=== PATIENT | female | born 1990 | race Caucasian/White ===

== ENCOUNTER → 2019-06-17 | Outpatient (CLI) | payer BC ==
[2019-06-17 11:19] LABS: HCT 41.3 % (34.0-46.0); HGB 13.5 gm/dL (11.4-16.0); MCH 27.5 pg (25.0-35.0); MCHC 32.6 g/dL (31.0-37.0); MCV 84.2 fL (80.0-100.0); Mean Platelet Volume 9.1; Platelet Count 224 k/uL (150-450); RDW 14.2 % (11.5-15.5)
[2019-06-17 18:10] LABS: Hemoglobin A1C 4.9 % (4.0-6.0)
[2019-06-17 18:26] LABS: Hepatitis B Surface Antigen Non-Reactive (Non-Reactive)
[2019-06-19 11:10] LABS: HIV 1 AB Non-Reactive (Non-Reactive); HIV 2 AB Non-Reactive (Non-Reactive); HIV AB P24 Non-Reactive (Non-Reactive); HIV P24 AG Non-Reactive (Non-Reactive)
== END | disposition home or self-care (01) ==
LOC: LABWHC1 09:45
PROVIDERS: ATTEND Obstetrics & Gynecology
DX: Z34.01 Encounter for supervision of normal first pregnancy, first trimester (principal); Z3A.00 Weeks of gestation of pregnancy not specified
CPT/HCPCS: 36415; 82950; 83036; 85027; 86762; 86780; 86850; 86900; 86901; 87340; 87390

== ENCOUNTER 2019-12-06 06:05 | Inpatient (IN) | payer BC ==
[2019-12-06] MEDS ORDERED: OXYTOCIN 10 UNIT/ML 1 ML VIAL IM PRN (06:16)
[2019-12-06] MEDS ORDERED: METHYLERGONOVINE 0.2 MG/ML 1 ML AMP IM PRN (06:16)
[2019-12-06] MEDS ORDERED: TERBUTALINE 1 MG/ML VIAL SQ PRN (06:16)
[2019-12-06] MEDS ORDERED: CARBOPROST TROMETHAMINE 250 MCG/ML 1 ML AMP IM PRN (06:16)
[2019-12-06] MEDS ORDERED: LIDOCAINE 0.5% (PF) 5 MG/ML (50 ML SDV) SQ PRN (06:16)
[2019-12-06] MEDS ORDERED: OXYTOCIN 30 UNITS/500 ML NS 30 UNIT in SALINE 1 500ML.BAG IV SCH (06:30)
[2019-12-06] MEDS ORDERED: PENICILLIN G POTASSIUM 5,000,000 UNIT in DEXTROSE 5% IN WATER 100 ML IVPB ONE ×2 (06:30)
[2019-12-06] MEDS: LACTATED RINGERS 1,000 ML IV SCH ×2 (06:40→10:02)
[2019-12-06 06:52] VITALS: RESP 16
[2019-12-06 07:38] LABS: Basophils % (A) 0 %; Eosinophils # (A) 0.1 k/uL (0-0.7); Eosinophils % (A) 1 %; HCT 38.1 % (34.0-46.0); HGB 12.6 gm/dL (11.4-16.0); Lymphocytes # (A) 1.9 k/uL (1.0-4.8); Lymphocytes % (A) 19 %; MCH 28.4 pg (25.0-35.0); MCHC 33.1 g/dL (31.0-37.0); MCV 85.6 fL (80.0-100.0); Mean Platelet Volume 14.3; Monocytes # (A) 0.5 k/uL (0-1.0); Monocytes % (A) 5 %; Neutrophils # (A) 7.1 k/uL (1.3-7.7); Neutrophils % (A) 72 %; Platelet Count 156 k/uL (150-450); RBC 4.45 m/uL (3.80-5.40); RDW 14.1 % (11.5-15.5); WBC 9.9 k/uL (3.8-10.6)
--- NOTE | 2019-12-06 07:49 | P.HPOB ---
History of Present Illness H&P Date: 12/06/19 This is a 29-year-old white female 1 para 0 EDC 12/13/2019 at 39 weeks gestation. Patient presents today for induction for gestational hypertension. Favorable cervix is noted. She is having mild irregular spontaneous contractions. She denies fluid leakage or vaginal bleeding. Fetus is been active throughout the . Weekly nonstress testing has been reactive. Obstetrical history is significant for blood type A+, group B strep cultures positive, rubella status immune. VDRL testing, gonorrhea and chlamydia cultures, urine culture, HIV testing, hepatitis B surface antigen all negative. One-hour Glucola 112. Marginal cord insertion was noted sonographically. Social history patient is , she is a schoolteacher, she has never been a smoker, she denies alcohol or drug use. Family history significant for breast cancer. ALLERGIES none known. Current medications vitamins daily. Past medical history is negative. Past surgical history tonsillectomy. On exam this is a pleasant white female who is 5 foot 6 inches, 239 pounds, blood pressure on admission 152/87, pulse 112, respirations 18. The general physical exam is within normal limits. The extremities reveal no edema. Reflexes are normal at +2 bilaterally. Chest is clear in all lindsey. Cervix is 5 cm dilated, 70% effaced, -2 station, vertex presentation. Artificial amniorrhexis reveals abundant clear fluid. heart rate is consistent with a reactive NST with a baseline of 1 30 bpm. Impression: 39 week intrauterine , mild gestational hypertension, favorable cervix, here for induction of labor. Positive group B strep cultures. Plan: Penicillin G per hospital protocol, first dose has already been received. Oxytocin per hospital protocol. Close maternal and surveillance. Careful third stage for history of marginal cord insertion. Anticipate normal spontan eous vaginal delivery. Analgesic options have been reviewed with the patient. In addition we will check AST, ALTs, uric acid. Review of Systems Constitutional: Reports as per HPI Past Medical History Past Medical History: No Reported History History of Any Multi-Drug Resistant Organisms: None Reported Past Surgical History: Tonsillectomy Past Anesthesia/Blood Transfusion Reactions: No Reported Reaction Smoking Status: Never smoker - Past Family History Mother Family Medical History: Cancer Additional Family Medical History / Comment(s): Breast Medications and Allergies Home Medications Medication Instructions Recorded Confirmed Type Aspirin 81 mg PO DAILY 12/06/19 12/06/19 History Pnv,Calcium 72/Iron/Folic Acid 1 each PO DAILY 12/06/19 12/06/19 History [ Plus Tablet] Allergies Allergy/AdvReac Type Severity Reaction Status Date / Time No Known Allergies Allergy Verified 12/06/19 06:11 Exam Vital Signs Temp Pulse Resp BP Pulse Ox 12/06/19 06:10 97.8 F 112 H 16 152/87 98 Intake and Output 12/05/19 12/06/19 12/06/19 22:59 06:59 14:59 Other: Weight 108.409 kg See dictation under HPI please Results Result Diagrams: 12/06/19 06:25 Assessment and Plan Assessment: 39 week intrauterine , mild gestational hypertension, positive group B strep cultures, favorable cervix. In early labor. Plan: Penicillin G per hospital protocol, first dose already received. Oxytocin titrated per hospital protocol. Close maternal and surveillance. Anticipate normal spontaneous vaginal delivery. Time with Patient: Less than 30
[2019-12-06 08:10] LABS: Uric Acid 5.3 mg/dL (3.7-7.4)
[2019-12-06 08:20] LABS: Large Platelets Present
[2019-12-06] MEDS ORDERED: fentaNYL (PF) 50 MCG/ML 5 ML AMP ONE (10:06)
[2019-12-06] MEDS ORDERED: SODIUM CHLORIDE 0.9% 100 ML BAG ONE (10:06)
[2019-12-06] MEDS ORDERED: ROPIVACAINE 5MG/ML 20ML VIAL ONE (10:06)
[2019-12-06] MEDS ORDERED: PENICILLIN G POTASSIUM 2,500,000 UNIT in DEXTROSE 5% IN WATER 100 ML IVPB SCH ×2 (10:30)
[2019-12-06] MEDS ORDERED: WITCH HAZEL 1 EACH MED..PAD TOPICAL PRN (12:54)
[2019-12-06] MEDS ORDERED: diphenhydrAMINE 25 MG CAP PO PRN (12:54)
[2019-12-06] MEDS ORDERED: diphenhydrAMINE 50 MG CAP PO PRN (12:54)
[2019-12-06] MEDS ORDERED: SIMETHICONE 80 MG CHEWABLE PO PRN (12:54)
[2019-12-06] MEDS ORDERED: diphenhydrAMINE 50 MG/ML 1 ML VIAL IVP PRN ×2 (12:54)
[2019-12-06] MEDS ORDERED: ACETAMINOPHEN TAB 325 MG TAB PO PRN (12:54)
[2019-12-06] MEDS ORDERED: HYDROCORTISONE 2.5% RECTAL CREAM 30 GM TUBE RECTAL PRN (12:54)
[2019-12-06] MEDS ORDERED: BENZOCAINE/MENTHOL SPRAY 1 GM/SPRAY AEROSOL TOPICAL PRN (12:54)
[2019-12-06] MEDS ORDERED: ZOLPIDEM 5 MG TAB PO PRN (12:54)
[2019-12-06] MEDS ORDERED: LANOLIN CREAM 5 GM TUBE TOPICAL PRN (12:54)
--- NOTE | 2019-12-06 12:54 | P.PROBDLV ---
Vaginal Delivery Note - . Vaginal Delivery Note: This is a 29-year-old white female 1 para 0 EDC 12/13/2019 at 39 weeks gestation. Patient presented this morning for induction for gestational hypertension with favorable cervix. Group strep cultures positive. Blood type A positive. Please see dictated history and physical for details. Artificial amniorrhexis revealed clear fluid. Oxytocin was started and titrated per hospital protocol. She progressed well through the first stage of labor with the aid of an epidural which was requested and received. She became completely dilated at 1206 hrs. and began the second stage of labor At that time. Perineal body was prepped and draped in usual sterile fashion. heart tones were reassuring throughout the first and second stages of labor. Patient pushed successfully for 20 minutes. Ultimately the infant's head crowned in the occiput anterior position. There was a nuchal cord 1 that was reduced. The left or anterior shoulder was delivered from underneath the pubic symphysis at which time the oropharynx, nasopharynx, and external nares were all bulb suctioned on the perineal body. Patient was officially delivered of a liveborn male at 1226 hrs. The umbilical cord was doubly clamped and ligated, he was handed to waiting nurses for evaluation where scores of 9 and 9 at one and 5 minutes respectively were given. The placenta delivered spontaneously with active management, it was inspected and noted to be intact with trivascular cord and a peripheral cord insertion. For this reason it was sent to pathology for further evaluation. Uterus was then massaged. Careful inspection of the cervix, vagina, perineum, periurethral, and perirectal areas revealed a small midline second-degree laceration. This was repaired in the usual fashion using 3-0 Rapide suture. Excellent reapproximation was noted. Fundus is firm and in the midline, symmetric and 18 week size upon completion of delivery. All sponge needle and enhancement counts are correct. Patient and her are allowed to begin the bonding experience in the LDR. Estimated blood loss 350 mL's. Blood pressure after delivery 137/75. Patient and her are requesting circumcision further infant son.
[2019-12-06] MEDS ORDERED: OXYTOCIN 20 UNITS/1000 ML NS 1,000 ML IV SCH (13:00)
[2019-12-06] MEDS: IBUPROFEN 600 MG TAB PO PRN ×2 (15:29→22:25)
[2019-12-06] MEDS: SENNOSIDES-DOCUSATE SODIUM 1 EACH TAB PO SCH (19:31)
[2019-12-07 00:31] VITALS: TEMP 98.1
[2019-12-07] MEDS: SENNOSIDES-DOCUSATE SODIUM 1 EACH TAB PO SCH (07:50)
[2019-12-07 08:22] VITALS: BP 141/87; PULSE 98
--- NOTE | 2019-12-07 08:25 | P.DS ---
Providers Date of admission: 12/06/19 06:05 Expected date of discharge: 12/07/19 Attending physician: Cassie Alvarez Primary care physician: Stated None Hospital Course: This is a 29-year-old white female 1 para 0 EDC 12/13/2019 at 39 weeks gestation. Patient presented for induction for -induced hypertension. All labs within normal limits. otherwise remarkable for positive group B strep cultures, please see my dictated history and physical for details. Artificial amniorrhexis revealed clear fluid. Oxytocin was started and titrated per hospital protocol. Epidural was requested and placed. Patient progressed well and went on to deliver vaginally a liveborn male with scores of 9 and 9 at one and 5 minutes respectively. There was a nuchal cord 1 easily reduced, a small second-degree perineal laceration. Infant weighed 3355 g or 7 lbs. 6 oz. Please see my dictated delivery note for details. This morning the patient is doing well. She is voiding, ambulating and passing flatus without difficulty. Vital signs are stable and she is afebrile. Fundus is firm and in the midline, symmetric and 18 week size. Extremities are negative for edema. Chest is clear in all lindsey. Breast-feeding is going well. Breasts are not engorged. Kite infant is doing well, circumcision has been performed. Patient is judged to be in very good condition for discharge home. Patient is being discharged home at this time and will follow-up with me in the office in 6 weeks. She is reminded no intercourse, tampons or douching. She will use [id number] ibuprofen products as needed for pain and continue taking her vitamin daily. She will call with any fevers shakes or chills, foul smelling or copious lochia, with the passage of large blood clots, with any pain not alleviated by [id number] ibuprofen, or indeed with any concerns. will follow-up in the office as per pediatricians recommendation. We have briefly discussed contraceptive options and we will discuss this further in the office as appropriate. Patient Condition at Discharge: Good Plan - Discharge Summary Discharge Rx Participant: No New Discharge Prescriptions: No Action Aspirin 81 mg PO DAILY Pnv,Calcium 72/Iron/Folic Acid [ Plus Tablet] 1 each PO DAILY Discharge Medication List Aspirin 81 mg PO DAILY 12/06/19 [History] Pnv,Calcium 72/Iron/Folic Acid [ Plus Tablet] 1 each PO DAILY 12/06/19 [History] Follow up Appointment(s)/Referral(s): Cassie Alvarez MD [STAFF PHYSICIAN] - 6 Weeks
== END 2019-12-07 13:54 | disposition home or self-care (01) | DRG 807 ==
LOC: 4FBP 06:05
PROVIDERS: ADMIT Obstetrics & Gynecology; ATTEND Obstetrics & Gynecology
PROC: 10907ZC Drainage of Amniotic Fluid, Therapeutic from Products of Conception, Via Natural or Artificial Opening (ICD-10-PCS; 2019-12-06)
PROC: 3E033VJ Introduction of Other Hormone into Peripheral Vein, Percutaneous Approach (ICD-10-PCS; 2019-12-06)
PROC: 0KQM0ZZ Repair Perineum Muscle, Open Approach (ICD-10-PCS; principal; 2019-12-07)
PROC: 10E0XZZ Delivery of Products of Conception, External Approach (ICD-10-PCS; principal; 2019-12-07)
DX: O13.4 Gestational [pregnancy-induced] hypertension without significant proteinuria, complicating childbirth (principal); Z37.0 Single live birth; O69.81X0 Labor and delivery complicated by cord around neck, without compression, not applicable or unspecified; O70.1 Second degree perineal laceration during delivery; O99.824 Streptococcus B carrier state complicating childbirth; Z3A.39 39 weeks gestation of pregnancy; Z79.82 Long term (current) use of aspirin; Z80.3 Family history of malignant neoplasm of breast
CPT/HCPCS: 84450; 84460; 84550; 85025; 86850; 86900; 86901; 88307